=== PATIENT | male | born 1950 | race Caucasian/White ===

== ENCOUNTER → 2018-11-23 | Outpatient (CLI) | payer OTHER, MEDICARE ==
[~2018-11-23] MED LIST: ASPIR-LOW81 MG PO; BENICAR20 MG PO; COREG6.25 MG PO; CRESTOR40 MG PO; MICARDIS 80 MG80 MG; MICARDIS40 MG; NEXIUM40 MG PO
[2018-11-23 11:55] LABS: ABSOLUTE BASOPHILS 0.1 thou/uL (0.0-0.2); ABSOLUTE EOSINOPHILS 0.2 thou/uL (0.0-0.7); ABSOLUTE LYMPHOCYTES 1.9 thou/uL (0.8-5.3); ABSOLUTE NEUTROPHILS 4.3 thou/uL (1.6-8.1); BASOPHILS 1.4 %; EOSINOPHILS 2.2 %; HEMATOCRIT 41.8 % (42.0-52.0); LYMPHOCYTES 25.4 %; MCH 28.1 pg (26.0-34.0); MCHC 33.5 g/dL (28.0-37.0); MCV 84.1 fL (80.0-100.0); MONOCYTES 13.6 %; MPV 7.6 fl. (7.2-11.1); NUCLEATED RBCS 0 /100WBC; PLATELET COUNT* 297 thou/uL (150-400); POLYS 57.4 %; RBC 4.98 mil/uL (4.50-6.00); RDW-CV 14.6 % (10.5-14.5); WBC 7.5 thou/uL (4.0-11.0)
[2018-11-23 12:07] LABS: ALBUMIN 3.8 g/dL (3.4-5.0); ALKALINE PHOSPHATASE 84 U/L (46-116); ANION GAP 11 mmol/L (7-16); BUN 18 mg/dL (7-18); CALCIUM 9.1 mg/dL (8.5-10.1); CHLORIDE 99 mmol/L (98-107); CHOLESTEROL 214 mg/dL (<200); CO2 26 mmol/L (21-32); CREATININE 1.1 mg/dL (0.6-1.3); GLUCOSE 94 mg/dL (70-99); HDL CHOLESTEROL 49 mg/dL (>40); LDL CHOLESTEROL 137 mg/dL (<100); POTASSIUM 4.1 mmol/L (3.5-5.1); SGOT 18 U/L (15-37); SGPT 25 U/L (30-65); SODIUM 136 mmol/L (136-145); TC:HDL 4.4 Ratio (Not establshd); TOTAL BILIRUBIN 0.6 mg/dL (<0.1-1.0); TOTAL PROTEIN 8.1 g/dL (6.4-8.2); TRIGLYCERIDE 143 mg/dL (<150); VLDL 29 mg/dL (<40)
[2018-11-23 12:09] LABS: SERUM ASSESSMENT Clear
== END ==
LOC: M.LAB 11:32
PROVIDERS: Family Medicine
DX: I10 Essential (primary) hypertension (principal); I25.10 Atherosclerotic heart disease of native coronary artery without angina pectoris; E78.00 Pure hypercholesterolemia, unspecified; K21.9 Gastro-esophageal reflux disease without esophagitis

== ENCOUNTER → 2019-02-15 | Outpatient (CLI) | payer OTHER, MEDICARE ==
[2019-02-15 10:14] LABS: CHOLESTEROL 204 mg/dL (<200); HDL CHOLESTEROL 55 mg/dL (>40); LDL CHOLESTEROL 130 mg/dL (<100); TC:HDL 3.7 Ratio (Not establshd); TRIGLYCERIDE 98 mg/dL (<150); VLDL 20 mg/dL (<40)
[2019-02-15 10:17] LABS: SERUM ASSESSMENT Clear
== END ==
LOC: M.LAB 09:39
PROVIDERS: Internal Medicine Cardiovascular Disease
DX: E78.01 Familial hypercholesterolemia (principal)

== ENCOUNTER → 2019-03-11 | Outpatient (CLI) | payer OTHER, MEDICARE | LOC: M.RAD 09:23 | DX: M50.322 Other cervical disc degeneration at C5-C6 level (principal); I65.21 Occlusion and stenosis of right carotid artery ==

== ENCOUNTER → 2019-03-18 | Outpatient (CLI) | payer OTHER, MEDICARE | LOC: M.ULTRA 09:30 | DX: I65.23 Occlusion and stenosis of bilateral carotid arteries (principal) ==

== ENCOUNTER → 2019-04-23 | Outpatient (CLI) | payer OTHER, MEDICARE ==
[2019-04-23 10:44] LABS: ALBUMIN 3.6 g/dL (3.4-5.0); ALKALINE PHOSPHATASE 62 U/L (46-116); ANION GAP 7 mmol/L (7-16); BUN 20 mg/dL (7-18); CALCIUM 9.5 mg/dL (8.5-10.1); CHLORIDE 106 mmol/L (98-107); CHOLESTEROL 98 mg/dL (<200); CO2 28 mmol/L (21-32); CREATININE 1.3 mg/dL (0.6-1.3); GLUCOSE 95 mg/dL (70-99); HDL CHOLESTEROL 54 mg/dL (>40); LDL CHOLESTEROL 35 mg/dL (<100); SGOT 23 U/L (15-37); SGPT 29 U/L (30-65); SODIUM 141 mmol/L (136-145); TC:HDL 1.8 Ratio (Not establshd); TOTAL BILIRUBIN 0.4 mg/dL (<0.1-1.0); TOTAL PROTEIN 7.3 g/dL (6.4-8.2); TRIGLYCERIDE 47 mg/dL (<150); VLDL 9 mg/dL (<40)
[2019-04-23 10:45] LABS: SERUM ASSESSMENT Clear
== END ==
LOC: M.LAB 10:00
PROVIDERS: Family Medicine
DX: E78.00 Pure hypercholesterolemia, unspecified (principal); R42 Dizziness and giddiness

== ENCOUNTER → 2019-04-26 | Outpatient (CLI) | payer OTHER, MEDICARE ==
[~2019-04-26] MED LIST changes: +PRALUENT P75 MG/1 ML INJECTION
== END ==
LOC: M.LAB 15:30 → M.MRI 16:30
DX: I67.82 Cerebral ischemia (principal)

== ENCOUNTER 2019-06-05 16:34 | Inpatient (IN) | payer OTHER, MEDICARE ==
[~2019-06-05] VITALS: Ht 152.4 cm; Wt 81.3 kg
--- NOTE | ~2019-06-05 | EEG ---
[address] [address] EEG STUDY REPORT Name: BOWMANRADHA WALTERS Room: [address] IN ..#: [id number] Admission: 06/05/19 Attend Phys: Elma Galvez Discharge: Date of : 46 Report #: [id number] THIS REPORT FOR: //name// CC: Vahe Suarez DATE OF SERVICE: 06/06/2019 This patient is being evaluated for the possibility of TIA. EEG was done by placing the electrode by standard 10-20 system of electrode placement. Both referential and sequential montages were used for recording. Background activity in this patient's EEG is about 11 Hz and 30 microvolt. The patient became drowsy that is associated with bilateral slowing and vertex sharp waves. Photic stimulation was unremarkable. Throughout the record, no active epileptiform activity was noticed. IMPRESSION: This patient's EEG is within normal limits. Thank you very much for this referral. By: [id number] Navas MD /nt
[~2019-06-05 16:34] MED LIST changes: -PRALUENT P75 MG/1 ML INJECTION
[2019-06-05 16:44] VITALS: BP 184/80
[2019-06-05] MEDS ORDERED: PRALUENT P75 MG/1 ML INJECTION (16:51)
[2019-06-05 17:24] LABS: ABSOLUTE EOSINOPHILS 0.2 thou/uL (0.0-0.7); ABSOLUTE LYMPHOCYTES 1.6 thou/uL (0.8-5.3); ABSOLUTE NEUTROPHILS 7.1 thou/uL (1.6-8.1); BASOPHILS 0.2 %; HEMATOCRIT 40.9 % (42.0-52.0); HEMOGLOBIN 13.7 gm/dL (14.0-18.0); LYMPHOCYTES 15.9 %; MCH 29.1 pg (26.0-34.0); MCHC 33.4 g/dL (28.0-37.0); MCV 87.1 fL (80.0-100.0); MONOCYTES 9.7 %; MPV 7.8 fl. (7.2-11.1); NUCLEATED RBCS 0 /100WBC; PLATELET COUNT* 319 thou/uL (150-400); POLYS 72.2 %; RDW-CV 14.6 % (10.5-14.5); WBC 9.8 thou/uL (4.0-11.0)
[2019-06-05 17:30] LABS: CALCIUM 9.2 mg/dL (8.5-10.1); CREATININE 0.9 mg/dL (0.6-1.3); POTASSIUM 4.3 mmol/L (3.5-5.1)
[2019-06-05 17:37] LABS: ALBUMIN 3.8 g/dL (3.4-5.0); TOTAL BILIRUBIN 0.4 mg/dL (<0.1-1.0); TOTAL PROTEIN 7.8 g/dL (6.4-8.2)
[2019-06-05 17:49] LABS: APTT 31.3 Seconds (25.0-31.3); PROTIME 9.8 Seconds (9.20-11.50)
[2019-06-05 17:55] LABS: TROPONIN-I LEVEL <0.06 ng/mL (<0.06)
[2019-06-05 17:56] LABS: URINE BILIRUBIN NEGATIVE (Negative); URINE BLOOD NEGATIVE (Negative); URINE CLARITY CLEAR; URINE COLOR YELLOW; URINE GLUCOSE-RANDOM NEGATIVE (Negative); URINE KETONES TRACE (Negative); URINE LEUKOCYTES-REFLEX NEGATIVE (Negative); URINE NITRITE-REFLEX NEGATIVE (Negative); URINE PROTEIN 2+ (Negative); URINE SPECIFIC GRAVITY 1.015 (1.005-1.030)
[2019-06-05 18:06] LABS: MUCUS 4-6 Moderate strn/LPF (None Seen); SQUAMOUS 0-3 Few /LPF (0-3)
[2019-06-05 18:07] LABS: HYALINE CASTS 0-3 Few /LPF (None Seen); URINE WBC-REFLEX 0-5 Rare /HPF (0-5)
[2019-06-05 18:08] LABS: BACTERIA-REFLEX 1-9 Few /HPF (None Seen); CRYSTALS None Seen /LPF (None Seen); URINE RBC None Seen /HPF (0-2)
[2019-06-05 18:14] VITALS: BP 185/83
[2019-06-05 18:40] VITALS: BP 172/74
[2019-06-05 20:00] VITALS: BP 175/72
[2019-06-06] VITALS: BP 147/69
--- NOTE | 2019-06-06 03:56 | NUR ---
ASSUMED PT CARE AFTER REPORT AT APPROX 1930. PT IS AWAKE AND ORIENTED X4, CAN BE FORGETFUL. 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 ASSESSMENT DONE AND CHARTED. NIHSS DONE AND CHARTED. PT DENIES PAIN/DISCOMFORT, STATED HE'S A "LITTLE LIGHTHEADED". PT HAS STEADY GAIT AND AMBULATES INDEPENDENTLY. PT IS ABLE TO SLEEP MOST OF THE NIGHT. CALL LIGHT WITHIN REACH. HOURLY ROUNDING DONE FOR PT SAFETY. WCTM.
[2019-06-06 04:00] VITALS: BP 135/72
[2019-06-06 08:00] VITALS: BP 153/71
[2019-06-06 10:00] LABS: AMP/METHAMP Negative (Negative); BARBITURATES Negative (Negative); BENZODIAZEPINES Negative (Negative); COCAINE Negative (Negative); METHADONE Negative (Negative); OPIATES Negative (Negative); PCP Negative (Negative); THC Negative (Negative)
--- NOTE | 2019-06-06 10:52 | NUR ---
ASSUMED PT CARE REPORT RECEIVED FROM NURSE. PT IS AOX4. TRACING SR ON GRANTS ANALYST. ON RA. O2 SATURATION IS 98%. PT AMBULATES IN HALLWAYS INDEPENDENTLY. URINE SAMPLE SENT TO LAB FOR TESTING. BP MEDICATION GIVEN THIS AM ORDERED. EEG BEING PERFORMED THIS TIME. PT HAS NO COMPLAINT. WILL CONTINUE TO MONITOR.
[2019-06-06 12:21] VITALS: BP 180/73
[2019-06-06 19:03] VITALS: BP 169/73
[2019-06-06 20:00] VITALS: BP 157/62
--- NOTE | 2019-06-06 20:00 | NUR ---
RECEIVED REPORT AND ASSUMED CARE OF PT, ASSESSMENT COMPLETED. PT VERY PLEASANT AND COOPERATIVE. NIH PREFORMED, SCORE OF 0. GAIT STEADY AND AMBULATES AROUND ROOM. TELEMETRY ON SHOWING SR. WILL CONT TO MONITOR AND ASSIST NEEDED.
[2019-06-07] VITALS: BP 139/76
[2019-06-07 04:00] VITALS: BP 130/74
--- NOTE | 2019-06-07 06:48 | NUR ---
SLEPT WELL TONIGHT. UP AD NORMAN WITH STEADY GAIT AROUND ROOM. TELEMETRY CONT TO SHOW SR. NO CHANGE IN ASSESSMENT. HS GOALS OF REST AND SAFETY ACHIEVED. HOURLY ROUNDING OBSERVED.
[2019-06-07 08:00] VITALS: BP 160/71
--- NOTE | 2019-06-07 12:31 | EKG ---
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1950 Requested By: Gigi Florian Order Number: [id number] MD: Avery Rothman Measurements Intervals Williams Rate: 72 P: 52 [place]: 153 QRS: 65 QRSD: 99 T: 63 QT: 430 QTc: 471 Interpretive Statements Sinus rhythm Probable left atrial enlargement Compared to ECG 09/18/2016 11:08:34 No significant changes Electronically Signed On 06-07-2019 12:31:14 CDT by Avery Rothman [email or web address] <ELECTRONICALLY SIGNED> By: Avery Rothman MD, [facility] 06/07/19 1231 1659 1659 Avery Rothman MD, [facility] /EPI
[2019-06-07 13:35] VITALS: BP 160/71
--- NOTE | 2019-06-07 13:42 | 2DMMODE ---
[place] [address] 2 D/M-MODE ECHOCARDIOGRAM Name: RADHA BOWMAN Room: [facility] IN [facility]#: [id number] Admission: 06/05/19 Attend Phys: Juve Suarez Discharge: Date of : 46 Date of Service: 06/07/19 1341 Report #: [id number] THIS REPORT FOR: //name// APPROVED REPORT Study performed: 06/07/2019 11:14:55 EXAM: Comprehensive 2D, Doppler, and color-flow Echocardiogram Patient Location: In-Patient Room #: [facility] Status: routine BSA: 1.89 HR: 63 bpm BP: 160/71 mmHg Rhythm: NSR Other Information Study Quality: Good Indications Abnormal ECG 2D Dimensions IVSd: 11.42 (7-11mm) LVOT Diam: 19.79 (18-24mm) LVDd: 43.04 mm PWd: 11.02 (7-11mm) Ascending Ao: 32.88 (22-36mm) LVDs: 24.52 (25-40mm) Aortic Root: 32.19 mm Volumes Left Atrial Volume (Systole) LA ESV Index: 29.40 mL/m2 Aortic Valve AoV Peak Rhett.: 2.39 m/s AO Peak Gr.: 22.90 mmHg LVOT Max P.19 mmHg AO Mean Gr.: 13.13 mmHg LVOT Mean P.60 mmHg LVOT Max V: 1.14 m/s AO V2 VTI: 52.10 cm LVOT Mean V: 0.74 m/s MARILEE (VTI): 1.68 cm2 LVOT V1 VTI: 28.42 cm Mitral Valve E/A Ratio: 0.99 MV Decel. Time: 207.19 ms MV E Max Rhett.: 0.98 m/[place] [address] 2 D/M-MODE ECHOCARDIOGRAM Name: RADHA BOWMAN Room: [address] IN [facility].#: [id number] Admission: 06/05/19 Attend Phys: Juve Suarez Discharge: Date of : 46 Date of Service: 06/07/19 1341 Report #: [id number] MV PHT: 60.09 ms MVA (PHT): 3.66 cm2 TDI E/Lateral E': 8.17 E/Medial E': 12.25 Medial E' Rhett.: 0.08 m/s Lateral E' Rhett.: 0.12 m/s Pulmonary Valve PV Peak Rhett.: 1.36 m/s PV Peak Gr.: 7.43 mmHg Tricuspid Valve RAP Estimate: 5.00 mmHg TR Peak Gr.: 23.74 mmHg RVSP: 28.00 mmHg PA Pressure: 28.00 mmHg Left Ventricle The left ventricle is normal size. There is normal LV segmental wall motion. Mild concentric left ventricular hypertrophy. Left ventricular systolic function is normal. The left ventricular ejection fraction is within the normal range. LVEF is 60-65%. The left ventricular diastolic function is normal. Right Ventricle The right ventricle is normal size. The right ventricular systolic function is normal. Atria Left atrium is mildly dilated. The right atrium size is normal. Aortic Valve Aortic valve leaflets are mildly thickened. No aortic regurgitation is present. Mild aortic stenosis. Mitral Valve There is mitral annular calcification. Trace mitral regurgitation. No evidence of mitral valve stenosis. Tricuspid Valve The tricuspid valve is normal in structure. Trace tricuspid regurgitation. No pulmonary hypertension. Pulmonic Valve The pulmonary valve is normal in structure. There is no pulmonic [place] [address] 2 D/M-MODE ECHOCARDIOGRAM Name: RADHA BOWMAN Room: [address] IN [facility]#: [id number] Admission: 06/05/19 Attend Phys: Juve Suarez Discharge: Date of : 46 Date of Service: 06/07/19 1341 Report #: [id number] Great Vessels The aortic root is normal in size. IVC is normal in size and collapses >50% with inspiration. Pericardium There is no pericardial effusion. <Conclusion> LVEF is 60-65%. Left atrium is mildly dilated. Mild aortic stenosis. Mild concentric left ventricular hypertrophy. <ELECTRONICALLY SIGNED> By: Avery Rothman MD, [facility] 06/07/19 134 1341 40 Avery Rothman MD, FACC /INF
[2019-06-07 14:00] VITALS: BP 163/66
--- NOTE | 2019-06-07 14:17 | NUR ---
PT LEFT THE TELE FLOOR AT 1400 AMBULATORY ACCOMPANIED BY STAFF. PT SAYS HE WILL WALK TO HIM CLINIC WHICH IS NEARBY. DISCHARGE INSTRUCTIONS GIVEN. QUESTIONS ANSWERED. NO FURTHER QUESTIONS.
== END 2019-06-07 14:06 | disposition home or self-care (01) | DRG 68 ==
LOC: M.ERS 16:34 → M.2W 17:42 → M.TBA-ER 17:42 → M.2W 18:27
PROVIDERS: Family Medicine; Physician Assistant; Psychiatry & Neurology Neurology; ADMIT Internal Medicine
DX: I65.03 Occlusion and stenosis of bilateral vertebral arteries (principal); I16.1 Hypertensive emergency; R41.0 Disorientation, unspecified; E78.5 Hyperlipidemia, unspecified; I25.10 Atherosclerotic heart disease of native coronary artery without angina pectoris; E04.1 Nontoxic single thyroid nodule; I11.9 Hypertensive heart disease without heart failure; I06.0 Rheumatic aortic stenosis; Z95.1 Presence of aortocoronary bypass graft; Z79.82 Long term (current) use of aspirin; Z79.899 Other long term (current) drug therapy; Z87.891 Personal history of nicotine dependence; Z82.3 Family history of stroke; Z83.3 Family history of diabetes mellitus

== ENCOUNTER → 2019-06-21 | Outpatient (CLI) | payer OTHER, MEDICARE ==
[~2019-06-21] MED LIST changes: +PRALUENT P75 MG/1 ML INJECTION
== END ==
LOC: M.ULTRA 09:00
DX: E04.1 Nontoxic single thyroid nodule (principal); R42 Dizziness and giddiness

== ENCOUNTER 2019-07-31 06:54 | Emergency (ER) | payer OTHER, MEDICARE ==
[~2019-07-31] VITALS: Ht 170.2 cm; Wt 74.8 kg
[2019-07-31 07:02] VITALS: BP 152/72
[2019-07-31 07:29] LABS: ABSOLUTE BASOPHILS 0.1 thou/uL (0.0-0.2); ABSOLUTE EOSINOPHILS 0.3 thou/uL (0.0-0.7); ABSOLUTE LYMPHOCYTES 1.8 thou/uL (0.8-5.3); ABSOLUTE MONOCYTES 0.8 thou/uL (0.0-1.2); ABSOLUTE NEUTROPHILS 4.2 thou/uL (1.6-8.1); EOSINOPHILS 4.2 %; HEMATOCRIT 39.6 % (42.0-52.0); HEMOGLOBIN 13.2 gm/dL (14.0-18.0); LYMPHOCYTES 24.5 %; MCH 28.1 pg (26.0-34.0); MCHC 33.3 g/dL (28.0-37.0); MCV 84.4 fL (80.0-100.0); MPV 7.8 fl. (7.2-11.1); NUCLEATED RBCS 0 /100WBC; PLATELET COUNT* 319 thou/uL (150-400); POLYS 59.3 %; RBC 4.69 mil/uL (4.50-6.00); RDW-CV 13.3 % (10.5-14.5); WBC 7.2 thou/uL (4.0-11.0)
[2019-07-31 07:33] LABS: ANION GAP 8 mmol/L (7-16); BUN 11 mg/dL (7-18); CALCIUM 9.1 mg/dL (8.5-10.1); CHLORIDE 104 mmol/L (98-107); CO2 28 mmol/L (21-32); CREATININE 1.1 mg/dL (0.6-1.3); GLUCOSE 113 mg/dL (70-99); SODIUM 140 mmol/L (136-145)
[2019-07-31] MEDS ORDERED: PLAVIX 75 MG TA75 M1 PO (07:34)
[2019-07-31 07:35] LABS: PROTIME 10.4 Seconds (9.20-11.50)
[2019-07-31 07:42] LABS: ALBUMIN 3.4 g/dL (3.4-5.0); ALKALINE PHOSPHATASE 68 U/L (46-116); SGOT 17 U/L (15-37); SGPT 26 U/L (30-65); TOTAL BILIRUBIN 0.4 mg/dL (<0.1-1.0); TROPONIN-I LEVEL <0.06 ng/mL (<0.06)
--- NOTE | 2019-07-31 07:50 | NUR ---
CODE STROKE CANCELLED BY DR TURNER AFTER SECOND NIH
--- NOTE | 2019-07-31 10:48 | NUR ---
PT PLACED ON INPATIENT BED
--- NOTE | 2019-07-31 11:51 | NUR ---
PT RETURNED FROM CT AT 1110. AT 1115 REPORTS PT BEGAN HAVING RT SIDE WEAKNESS. PROVIDER AWARE, PT'S WISHES TO DO TPA. PHARMACY AWARE AT THIS TIME.
[2019-07-31 13:02] VITALS: BP 155/67
[2019-07-31 15:55] VITALS: BP 155/67
--- NOTE | 2019-08-01 10:47 | EKG ---
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
[2019-08-02 11:10] LABS: ANA INTERPRETATION Positive (Negative)
[2019-08-02 18:09] LABS: ANA INTERPRETATION Negative (())
[2019-08-04 11:11] LABS: B.burgdorf.IgG Negative (()); B.burgdorf.IgM Negative (())
== END 2019-07-31 15:55 | disposition still patient (30) ==
LOC: M.ERS 06:54 → M.TBA-ER 09:02 → M.ERS 09:02 → M.TBA-ER 11:44
PROVIDERS: Family Medicine
DX: I63.9 Cerebral infarction, unspecified (principal); R42 Dizziness and giddiness; I10 Essential (primary) hypertension; Z95.1 Presence of aortocoronary bypass graft; Z86.73 Personal history of transient ischemic attack (TIA), and cerebral infarction without residual deficits

== ENCOUNTER → 2019-08-24 | Outpatient (CLI) | payer OTHER, MEDICARE ==
[~2019-08-24] MED LIST changes: +PLAVIX 75 MG TA75 M1 PO
[2019-08-24 09:52] LABS: ABSOLUTE BASOPHILS 0.1 thou/uL (0.0-0.2); ABSOLUTE EOSINOPHILS 0.3 thou/uL (0.0-0.7); ABSOLUTE LYMPHOCYTES 1.8 thou/uL (0.8-5.3); ABSOLUTE MONOCYTES 0.8 thou/uL (0.0-1.2); ABSOLUTE NEUTROPHILS 3.9 thou/uL (1.6-8.1); EOSINOPHILS 4.7 %; HEMATOCRIT 35.4 % (42.0-52.0); HEMOGLOBIN 11.4 gm/dL (14.0-18.0); LYMPHOCYTES 25.6 %; MCH 26.9 pg (26.0-34.0); MCHC 32.3 g/dL (28.0-37.0); MCV 83.3 fL (80.0-100.0); MPV 7.7 fl. (7.2-11.1); NUCLEATED RBCS 0 /100WBC; PLATELET COUNT* 336 thou/uL (150-400); POLYS 56.7 %; RBC 4.25 mil/uL (4.50-6.00); RDW-CV 13.8 % (10.5-14.5); WBC 6.9 thou/uL (4.0-11.0)
[2019-08-24 10:07] LABS: ALBUMIN 3.6 g/dL (3.4-5.0); CALCIUM 9.1 mg/dL (8.5-10.1); TOTAL BILIRUBIN 0.3 mg/dL (<0.1-1.0); TOTAL PROTEIN 6.9 g/dL (6.4-8.2)
== END ==
LOC: M.MRI 08:12 → M.LAB 08:12 → M.MRI 08:30
PROVIDERS: Psychiatry & Neurology Neuromuscular Medicine
DX: I63.9 Cerebral infarction, unspecified (principal); I67.82 Cerebral ischemia

== ENCOUNTER → 2019-10-27 | Outpatient (CLI) | payer OTHER, MEDICARE ==
[2019-10-27 17:07] LABS: ABSOLUTE BASOPHILS 0.1 thou/uL (0.0-0.2); ABSOLUTE EOSINOPHILS 0.2 thou/uL (0.0-0.7); ABSOLUTE LYMPHOCYTES 1.7 thou/uL (0.8-5.3); ABSOLUTE MONOCYTES 0.9 thou/uL (0.0-1.2); ABSOLUTE NEUTROPHILS 3.9 thou/uL (1.6-8.1); BASOPHILS 0.9 %; EOSINOPHILS 2.8 %; HEMATOCRIT 34.7 % (42.0-52.0); HEMOGLOBIN 10.9 gm/dL (14.0-18.0); LYMPHOCYTES 25.4 %; MCH 22.9 pg (26.0-34.0); MCHC 31.3 g/dL (28.0-37.0); MCV 73.1 fL (80.0-100.0); MONOCYTES 13.2 %; MPV 7.8 fl. (7.2-11.1); NUCLEATED RBCS 0 /100WBC; PLATELET COUNT* 344 thou/uL (150-400); POLYS 57.7 %; RBC 4.75 mil/uL (4.50-6.00); RDW-CV 16.6 % (10.5-14.5); WBC 6.7 thou/uL (4.0-11.0)
[2019-10-27 17:36] LABS: HYPOCHROMASIA 2+; MICROCYTES 1+; PLATELET ESTIMATE ADEQUATE
[2019-10-27 17:39] LABS: OVALOCYTES Occasional
== END ==
LOC: M.LAB 16:42
PROVIDERS: Nurse Practitioner Adult Health
DX: D50.9 Iron deficiency anemia, unspecified (principal); I63.211 Cerebral infarction due to unspecified occlusion or stenosis of right vertebral artery

== ENCOUNTER → 2020-01-18 | Outpatient (CLI) | payer OTHER, MEDICARE ==
[2020-01-18 10:09] LABS: ALBUMIN 3.7 g/dL (3.4-5.0); ALKALINE PHOSPHATASE 88 U/L (46-116); ANION GAP 8 mmol/L (7-16); BUN 16 mg/dL (7-18); CALCIUM 9.1 mg/dL (8.5-10.1); CHLORIDE 101 mmol/L (98-107); CHOLESTEROL 87 mg/dL (<200); CO2 30 mmol/L (21-32); CREATININE 1.1 mg/dL (0.6-1.3); GLUCOSE 94 mg/dL (70-99); HDL CHOLESTEROL 45 mg/dL (>40); LDL CHOLESTEROL 23 mg/dL (<100); POTASSIUM 4.4 mmol/L (3.5-5.1); SERUM ASSESSMENT Clear; SGOT 21 U/L (15-37); SGPT 32 U/L (30-65); SODIUM 139 mmol/L (136-145); TC:HDL 1.9 Ratio (Not establshd); TOTAL BILIRUBIN 0.3 mg/dL (<0.1-1.0); TOTAL PROTEIN 7.8 g/dL (6.4-8.2); TRIGLYCERIDE 96 mg/dL (<150); VLDL 19 mg/dL (<40)
== END ==
LOC: M.LAB 09:30
PROVIDERS: Family Medicine
DX: I25.10 Atherosclerotic heart disease of native coronary artery without angina pectoris (principal); I10 Essential (primary) hypertension; I63.211 Cerebral infarction due to unspecified occlusion or stenosis of right vertebral artery; Z98.890 Other specified postprocedural states

== ENCOUNTER → 2020-04-04 | Outpatient (CLI) | payer OTHER, MEDICARE | LOC: M.MRI 11:07 | DX: I67.82 Cerebral ischemia (principal); I65.02 Occlusion and stenosis of left vertebral artery; I35.0 Nonrheumatic aortic (valve) stenosis; G31.9 Degenerative disease of nervous system, unspecified; R90.82 White matter disease, unspecified ==

== ENCOUNTER → 2020-09-04 | Outpatient (CLI) | payer OTHER, MEDICARE | LOC: M.ULTRA 11:30 | PROVIDERS: ATTEND Family Medicine | DX: E07.89 Other specified disorders of thyroid (principal); E04.1 Nontoxic single thyroid nodule ==

== ENCOUNTER → 2020-10-03 | Outpatient (CLI) | payer OTHER ==
--- NOTE | 2020-10-05 15:07 | PATH ---
[address] [address] PATHOLOGY RPT PROCEDURE Name: GRACIERADHA Richard Room: [facility]#: [id number] Admission: 10/03/20 Date of : 46 Discharge: Report #: [id number] Path Case #: [id number] Note [facility] Accession Number: [id number] TESTS RESULT FLAG UNITS REF RANGE LAB Clinician Provided Cytology Information No. of containers..01 Other (Miscellaneous) Source: 01 N DIAGNOSIS: 02 N NEGATIVE FOR MALIGNANT CELLS. BETHESDA CATEGORY II: CONSISTENT WITH BENIGN FOLLICULAR NODULE. SPECIMEN CONSISTS OF BENIGN FOLLICULAR CELLS, HEMOSIDERIN-LADEN MACROPHAGES, COLLOID, AND BLOOD. THIS INTERPRETATION INCLUDES EVALUATION OF A CELL BLOCK. Pathologist ICD10: 02 E04.1 Signed out by: 02 Keny Veras MD, Pathologist NPI- [id number] Performed by: Kiera Davis, Dolly Pusher ([facility]) Gross description: 01 20ML, RED, 4 FX 4 DQ /LCS 10/04/2020 0806 Local FLAG LEGEND: L-Low Normal,H-High Normal,LL-Alert Low,HH-Alert High <-Panic Low,>-Panic High,A-Abnormal,AA-Critical Abnormal Performed at: [address] [place] [address] Simon Rivers MD, [address] [place] [address] Keny Veras MD, Specimen Comment: A courtesy copy of this report has been sent to [phone] Specimen Comment: [id number] Specimen Comment: Report sent to / DR BEE Specimen Comment: A duplicate report has been generated due to demographic updates. Performed at: [address], [place], [place] [id number] [address] [address] PATHOLOGY RPT PROCEDURE Name: RADHA BOWMAN Room: [facility]#: [id number] Admission: 10/03/20 Date of : 46 Discharge: Report #: [id number] Path Case #: [id number] MD Simon Rivers NE Phone: [phone]
== END ==
LOC: M.ULTRA 08:30
PROVIDERS: ATTEND Family Medicine
DX: E04.1 Nontoxic single thyroid nodule (principal); Z86.73 Personal history of transient ischemic attack (TIA), and cerebral infarction without residual deficits; Z79.899 Other long term (current) drug therapy; Z98.890 Other specified postprocedural states

== ENCOUNTER → 2021-02-26 | Outpatient (CLI) | payer OTHER, MEDICARE ==
[2021-02-26 08:35] LABS: ALBUMIN 3.8 g/dL (3.4-5.0); ALKALINE PHOSPHATASE 84 U/L (46-116); ANION GAP 7 mmol/L (7-16); BUN 20 mg/dL (7-18); CALCIUM 8.9 mg/dL (8.5-10.1); CHLORIDE 105 mmol/L (98-107); CHOLESTEROL 67 mg/dL (<200); CO2 30 mmol/L (21-32); CREATININE 1.1 mg/dL (0.6-1.3); GLUCOSE 97 mg/dL (70-99); HDL CHOLESTEROL 44 mg/dL (>40); LDL CHOLESTEROL 10 mg/dL (<100); SERUM ASSESSMENT Clear; SGOT 22 U/L (15-37); SGPT 34 U/L (30-65); SODIUM 142 mmol/L (136-145); TC:HDL 1.5 Ratio (Not establshd); TOTAL BILIRUBIN 0.3 mg/dL (<0.1-1.0); TOTAL PROTEIN 7.6 g/dL (6.4-8.2); TRIGLYCERIDE 67 mg/dL (<150); VLDL 13 mg/dL (<40)
[2021-02-26 08:41] LABS: ABSOLUTE BASOPHILS 0.1 thou/uL (0.0-0.2); ABSOLUTE EOSINOPHILS 0.3 thou/uL (0.0-0.7); ABSOLUTE LYMPHOCYTES 1.8 thou/uL (0.8-5.3); ABSOLUTE MONOCYTES 0.8 thou/uL (0.0-1.2); ABSOLUTE NEUTROPHILS 4.2 thou/uL (1.6-8.1); BASOPHILS 1.1 %; EOSINOPHILS 3.6 %; HEMATOCRIT 34.7 % (42.0-52.0); HEMOGLOBIN 10.4 gm/dL (14.0-18.0); LYMPHOCYTES 25.2 %; MCH 19.4 pg (26.0-34.0); MCHC 29.9 g/dL (28.0-37.0); MONOCYTES 11.3 %; MPV 7.5 fl. (7.2-11.1); NUCLEATED RBCS 0 /100WBC; PLATELET COUNT* 359 thou/uL (150-400); POLYS 58.8 %; RBC 5.33 mil/uL (4.50-6.00); RDW-CV 18.1 % (10.5-14.5); WBC 7.2 thou/uL (4.0-11.0)
[2021-02-26 09:22] LABS: ANISOCYTOSIS 1+; HYPOCHROMASIA 4+; MICROCYTES 1+
[2021-02-26 23:06] LABS: GLYCOHEMOGLOBIN (HGB A1C) 5.8 % (4.8-5.6)
== END ==
LOC: M.LAB 08:00
PROVIDERS: ATTEND Family Medicine
DX: Z12.5 Encounter for screening for malignant neoplasm of prostate (principal); I10 Essential (primary) hypertension; K29.71 Gastritis, unspecified, with bleeding; I63.211 Cerebral infarction due to unspecified occlusion or stenosis of right vertebral artery; I25.10 Atherosclerotic heart disease of native coronary artery without angina pectoris; E78.00 Pure hypercholesterolemia, unspecified; Z95.1 Presence of aortocoronary bypass graft; Z86.73 Personal history of transient ischemic attack (TIA), and cerebral infarction without residual deficits

== ENCOUNTER → 2021-09-07 | Outpatient (CLI) | payer OTHER, MEDICARE | LOC: M.MRI 08-28 08:30 | PROVIDERS: ATTEND Family Medicine | DX: M47.816 Spondylosis without myelopathy or radiculopathy, lumbar region (principal); M48.061 Spinal stenosis, lumbar region without neurogenic claudication; M47.817 Spondylosis without myelopathy or radiculopathy, lumbosacral region; M48.07 Spinal stenosis, lumbosacral region; M43.16 Spondylolisthesis, lumbar region; M43.17 Spondylolisthesis, lumbosacral region; R29.898 Other symptoms and signs involving the musculoskeletal system ==